=== PATIENT | female | born 1950 | race Caucasian/White ===

== ENCOUNTER 2019-07-13 22:21 | Inpatient (IN) | payer MEDICARE ==
[~2019-07-13] VITALS: Ht 149.9 cm; Wt 49.9 kg
[2019-07-13 22:48] LABS: BASOPHILS % (AUTO) 0.7 % (0.0-2.0); EOSINOPHILS % (AUTO) 4.4 % (0.0-6.0); HEMATOCRIT 37 % (33-45); HEMOGLOBIN 12.2 g/dL (11.5-14.8); LYMPHOCYTES # (AUTO) 2.4 /CMM (0.8-4.8); LYMPHOCYTES % (AUTO) 43.3 % (20.0-44.0); MEAN CORPUSCULAR HGB CONC 34 g/dl (31.0-36.0); MEAN CORPUSCULAR VOLUME 103 fL (82-100); MONOCYTES # (AUTO) 0.3 /CMM (0.1-1.30); MONOCYTES % (AUTO) 6.4 % (2.0-12.0); NEUTROPHILS # (AUTO) 2.5 /CMM (1.8-8.9); NEUTROPHILS % (AUTO) 45.2 % (43.0-81.0); PLATELET COUNT (AUTO) 72 /CMM (150-450); RED BLOOD CELL COUNT(AUTO) 3.54 MIL/uL (4.0-5.2); WHITE BLOOD COUNT (AUTO) 5.4 K/uL (4.3-11.0)
[2019-07-13 23:11] LABS: APPEARANCE,URINE Turbid (CLEAR); BILIRUBIN,URINE Negative (NEGATIVE); BLOOD, URINE Small Ery/uL (NEGATIVE); COLOR,URINE Yellow (YELLOW); KETONES,URINE Trace (NEGATIVE); LEUKOCYTE ESTERASE ,URINE Moderate (NEGATIVE); NITRITE, URINE Negative (NEGATIVE); PH,URINE 5.5 (5.0-8.0); PROTEIN,URINE 30 mg/dl (NEGATIVE); UGLUCOSE Negative (NEGATIVE); UROBILINOGEN,URINE 0.2 EU/dL (0.2)
[2019-07-13 23:16] LABS: EOSINOPHILS % (MANUAL) 2 % (0-4); LYMPHOCYTES % (MANUAL) 31 % (16-48); MONOCYTES % (MANUAL) 4 % (0-11.0); NEUTROPHILS % (MANUAL) 63 (42-76)
[2019-07-13 23:23] LABS: BACTERIA,URINE Moderate /HPF (None Seen); SQUAMOUS EPITHELIAL CELL,UR Moderate /HPF (None Seen)
[2019-07-13 23:40] LABS: CALCIUM, SERUM 8.7 mg/dL (8.5-10.1); CARBON DIOXIDE 29 mmol/L (21-32); CHLORIDE 104 mmol/L (98-107); CREATININE 1.1 mg/dL (0.6-1.3); GLUCOSE 67 mg/dL (74-106); POTASSIUM 3.9 mmol/L (3.5-5.1); SODIUM SERUM 141 mmol/L (136-145); UREA NITROGEN, BLOOD 28 mg/dL (7-18)
[2019-07-13 23:46] LABS: ALANINE AMINOTRANSFERASE 12 U/L (12-78); ALBUMIN 3.5 g/dL (3.4-5.0); ALKALINE PHOSPHATASE 56 U/L (46-116); ASPARTATE AMINOTRANSFERASE 13 U/L (15-37); BILIRUBIN,DIRECT 0.1 mg/dL (0.0-0.2); BILIRUBIN,TOTAL 0.3 mg/dL (0.2-1.0); TOTAL PROTEIN, SERUM 6.6 g/dL (6.4-8.2)
[2019-07-13 23:47] LABS: ACETAMINOPHEN 0 ug/ml (10-30); ALCOHOL, BLOOD < 3 mg/dL (0-0); SALICYLATE 1.5 mg/dL (2.8-20.0)
[2019-07-14] MEDS ORDERED: NITROFURANTOIN/NITROFURAN MAC 100 MG CAPSULE PO ONE
[2019-07-14] MEDS ORDERED: NITROFURANTOIN/NITROFURAN MAC 100 MG CAPSULE ONE (00:02)
[2019-07-14] MEDS ORDERED: TRAM50TA2 PO (00:49)
[2019-07-14] MEDS ORDERED: ARIP15TA3 PO (00:49)
[2019-07-14] MEDS ORDERED: BENZ2TAB7 PO (00:49)
[2019-07-14] MEDS ORDERED: MELA5TAB PO (00:49)
[2019-07-14] MEDS ORDERED: ESCI10TA PO (00:49)
[2019-07-14] MEDS ORDERED: CLON0.5T PO (00:49)
[2019-07-14] MEDS ORDERED: DIVA-78 PO (00:49)
[2019-07-14] MEDS ORDERED: DOCU-141 PO (00:49)
[2019-07-14] MEDS ORDERED: ATOR10TA PO (00:49)
[2019-07-14] MEDS ORDERED: CALC-770 PO (00:49)
[2019-07-14] MEDS ORDERED: AMLO10TA7 PO (00:49)
[2019-07-14] MEDS ORDERED: LITH300C4 PO (00:49)
[2019-07-14] MEDS ORDERED: GABA-534 PO (00:49)
[2019-07-14] MEDS ORDERED: OXYB5TAB11 PO (00:49)
[2019-07-14] MEDS ORDERED: TEMAZEPAM 7.5 MG CAPSULE PO PRN (02:00)
[2019-07-14] MEDS ORDERED: ACETAMINOPHEN 325 MG TABLET PO PRN (02:00)
[2019-07-14] MEDS ORDERED: MAGNESIUM HYDROXIDE 30 ML UDC PO PRN (02:00)
[2019-07-14] MEDS ORDERED: MAG HYDROX/AL HYDROX/SIMETH 30 ML UDC PO PRN (02:00)
[2019-07-14 02:30] VITALS: BP 139/71
[2019-07-14] MEDS ORDERED: BLOOD SUGAR DIAGNOSTIC 1 EACH STRIP IN ONE (02:30)
[2019-07-14 08:00] VITALS: BP 129/80
[2019-07-14] MEDS: NICOTINE PATCH (14MG) 14 MG PATCH.TD24 TD SCH (08:31)
[2019-07-14] MEDS: ESCITALOPRAM OXALATE (10 MG) 10 MG TABLET PO SCH (10:06)
[2019-07-14] MEDS: LITHIUM CARBONATE 150 MG CAPSULE PO SCH ×2 (10:06→21:09)
[2019-07-14] MEDS: DIVALPROEX SODIUM 500 MG TABLET.DR PO SCH ×3 (10:06→21:09)
[2019-07-14 16:00] VITALS: BP 112/62
[2019-07-14 20:07] VITALS: BP 117/89
[2019-07-14] MEDS: ARIPIPRAZOLE 5 MG TABLET PO SCH (21:09)
[2019-07-15 06:50] LABS: BASOPHILS % (AUTO) 0.6 % (0.0-2.0); EOSINOPHILS % (AUTO) 8.1 % (0.0-6.0); HEMATOCRIT 43 % (33-45); HEMOGLOBIN 14.1 g/dL (11.5-14.8); LYMPHOCYTES # (AUTO) 0.9 /CMM (0.8-4.8); MEAN CORPUSCULAR HGB CONC 33 g/dl (31.0-36.0); MEAN CORPUSCULAR VOLUME 103 fL (82-100); MONOCYTES # (AUTO) 0.3 /CMM (0.1-1.30); MONOCYTES % (AUTO) 4.8 % (2.0-12.0); NEUTROPHILS # (AUTO) 3.9 /CMM (1.8-8.9); NEUTROPHILS % (AUTO) 69.5 % (43.0-81.0); PLATELET COUNT (AUTO) 71 /CMM (150-450); RED BLOOD CELL COUNT(AUTO) 4.13 MIL/uL (4.0-5.2); WHITE BLOOD COUNT (AUTO) 5.5 K/uL (4.3-11.0)
[2019-07-15 07:14] LABS: CALCIUM, SERUM 9.3 mg/dL (8.5-10.1)
[2019-07-15 07:24] LABS: EOSINOPHILS % (MANUAL) 7 % (0-4); LYMPHOCYTES % (MANUAL) 17 % (16-48); MONOCYTES % (MANUAL) 2 % (0-11.0); NEUTROPHILS % (MANUAL) 74 (42-76)
[2019-07-15 08:00] VITALS: BP 100/65
[2019-07-15] MEDS: DOCUSATE SODIUM 100 MG CAPSULE PO SCH ×2 (08:50→17:03)
[2019-07-15] MEDS: LITHIUM CARBONATE 150 MG CAPSULE PO SCH ×2 (08:51→21:05)
[2019-07-15] MEDS: GABAPENTIN 300 MG CAPSULE PO SCH (08:51)
[2019-07-15] MEDS: ESCITALOPRAM OXALATE (10 MG) 10 MG TABLET PO SCH (08:51)
[2019-07-15] MEDS: AMLODIPINE BESYLATE 10 MG TABLET PO SCH (08:51)
[2019-07-15] MEDS: ATORVASTATIN 10 MG TABLET PO SCH (08:51)
[2019-07-15] MEDS: TRAMADOL HCL 50 MG TABLET PO SCH ×2 (08:52→17:04)
[2019-07-15] MEDS: NICOTINE PATCH (14MG) 14 MG PATCH.TD24 TD SCH (08:53)
[2019-07-15] MEDS: DIVALPROEX SODIUM 500 MG TABLET.DR PO SCH ×3 (09:00→21:05)
[2019-07-15] MEDS ORDERED: Medication Not On Formulary EA (Melatonin 5 MG) PO SCH (09:00)
[2019-07-15 16:00] VITALS: BP 99/64
[2019-07-15 20:00] VITALS: BP 99/61
[2019-07-15 20:12] VITALS: BP 99/61
[2019-07-15] MEDS: ARIPIPRAZOLE 5 MG TABLET PO SCH (21:05)
[2019-07-16 08:00] VITALS: BP 109/51
[2019-07-16] MEDS: NICOTINE PATCH (14MG) 14 MG PATCH.TD24 TD SCH (08:52)
[2019-07-16] MEDS: GABAPENTIN 300 MG CAPSULE PO SCH (08:52)
[2019-07-16] MEDS: ATORVASTATIN 10 MG TABLET PO SCH (08:53)
[2019-07-16] MEDS: DIVALPROEX SODIUM 500 MG TABLET.DR PO SCH ×3 (08:53→20:38)
[2019-07-16] MEDS: LITHIUM CARBONATE 150 MG CAPSULE PO SCH ×2 (08:53→20:38)
[2019-07-16] MEDS: DOCUSATE SODIUM 100 MG CAPSULE PO SCH ×2 (08:53→17:02)
[2019-07-16] MEDS: AMLODIPINE BESYLATE 10 MG TABLET PO SCH (08:54)
[2019-07-16] MEDS: ESCITALOPRAM OXALATE (10 MG) 10 MG TABLET PO SCH (08:54)
[2019-07-16] MEDS: TRAMADOL HCL 50 MG TABLET PO SCH ×2 (09:04→17:02)
[2019-07-16 16:13] VITALS: BP 100/61
[2019-07-16 19:46] VITALS: BP 122/76
[2019-07-16] MEDS: ARIPIPRAZOLE 5 MG TABLET PO SCH (21:22)
[2019-07-17 08:00] VITALS: BP 122/63
[2019-07-17] MEDS: GABAPENTIN 300 MG CAPSULE PO SCH (08:54)
[2019-07-17] MEDS: LITHIUM CARBONATE 150 MG CAPSULE PO SCH ×2 (08:54→21:17)
[2019-07-17] MEDS: TRAMADOL HCL 50 MG TABLET PO SCH ×2 (08:54→16:22)
[2019-07-17] MEDS: DOCUSATE SODIUM 100 MG CAPSULE PO SCH ×2 (08:54→16:23)
[2019-07-17] MEDS: ESCITALOPRAM OXALATE (10 MG) 10 MG TABLET PO SCH (08:54)
[2019-07-17] MEDS: NICOTINE PATCH (14MG) 14 MG PATCH.TD24 TD SCH (08:55)
[2019-07-17] MEDS: AMLODIPINE BESYLATE 10 MG TABLET PO SCH (08:55)
[2019-07-17] MEDS: ATORVASTATIN 10 MG TABLET PO SCH (08:55)
[2019-07-17] MEDS: DIVALPROEX SODIUM 500 MG TABLET.DR PO SCH ×3 (08:55→21:17)
[2019-07-17 16:00] VITALS: BP 100/63
[2019-07-17 21:02] VITALS: BP 104/63
[2019-07-17] MEDS: ARIPIPRAZOLE 5 MG TABLET PO SCH (21:17)
[2019-07-18 08:00] VITALS: BP 112/64
[2019-07-18] MEDS: TRAMADOL HCL 50 MG TABLET PO SCH ×2 (08:49→16:44)
[2019-07-18] MEDS: DOCUSATE SODIUM 100 MG CAPSULE PO SCH ×2 (08:49→16:40)
[2019-07-18] MEDS: ATORVASTATIN 10 MG TABLET PO SCH (08:49)
[2019-07-18] MEDS: GABAPENTIN 300 MG CAPSULE PO SCH (08:49)
[2019-07-18] MEDS: ESCITALOPRAM OXALATE (10 MG) 10 MG TABLET PO SCH (08:50)
[2019-07-18] MEDS: DIVALPROEX SODIUM 500 MG TABLET.DR PO SCH ×3 (08:50→21:18)
[2019-07-18] MEDS: LITHIUM CARBONATE 150 MG CAPSULE PO SCH ×2 (08:50→21:18)
[2019-07-18] MEDS: AMLODIPINE BESYLATE 10 MG TABLET PO SCH (08:51)
[2019-07-18] MEDS: NICOTINE PATCH (14MG) 14 MG PATCH.TD24 TD SCH (08:52)
[2019-07-18 16:00] VITALS: BP 117/59
[2019-07-18 19:56] VITALS: BP 155/87
[2019-07-18] MEDS: ARIPIPRAZOLE 5 MG TABLET PO SCH (21:18)
[2019-07-19 08:00] VITALS: BP 150/91
[2019-07-19] MEDS: NICOTINE PATCH (14MG) 14 MG PATCH.TD24 TD SCH (08:39)
[2019-07-19] MEDS: GABAPENTIN 300 MG CAPSULE PO SCH (08:39)
[2019-07-19] MEDS: ATORVASTATIN 10 MG TABLET PO SCH (08:39)
[2019-07-19] MEDS: ESCITALOPRAM OXALATE (10 MG) 10 MG TABLET PO SCH (08:40)
[2019-07-19] MEDS: DOCUSATE SODIUM 100 MG CAPSULE PO SCH ×2 (08:40→16:43)
[2019-07-19] MEDS: DIVALPROEX SODIUM 500 MG TABLET.DR PO SCH ×3 (08:40→20:30)
[2019-07-19] MEDS: LITHIUM CARBONATE 150 MG CAPSULE PO SCH ×2 (08:40→20:30)
[2019-07-19] MEDS: AMLODIPINE BESYLATE 10 MG TABLET PO SCH (08:41)
[2019-07-19] MEDS: TRAMADOL HCL 50 MG TABLET PO SCH ×2 (08:41→16:43)
[2019-07-19 16:04] VITALS: BP 102/64
[2019-07-19 19:54] VITALS: BP 106/61
[2019-07-19] MEDS: ARIPIPRAZOLE 5 MG TABLET PO SCH (21:06)
[2019-07-20 08:00] VITALS: BP 106/74
[2019-07-20] MEDS: ESCITALOPRAM OXALATE (10 MG) 10 MG TABLET PO SCH (08:53)
[2019-07-20] MEDS: DIVALPROEX SODIUM 500 MG TABLET.DR PO SCH ×3 (08:53→21:43)
[2019-07-20] MEDS: GABAPENTIN 300 MG CAPSULE PO SCH (08:53)
[2019-07-20] MEDS: LITHIUM CARBONATE 150 MG CAPSULE PO SCH ×2 (08:55→21:26)
[2019-07-20] MEDS: DOCUSATE SODIUM 100 MG CAPSULE PO SCH ×2 (08:55→17:00)
[2019-07-20] MEDS: ATORVASTATIN 10 MG TABLET PO SCH (08:55)
[2019-07-20] MEDS: TRAMADOL HCL 50 MG TABLET PO SCH ×2 (08:55→17:01)
[2019-07-20] MEDS: NICOTINE PATCH (14MG) 14 MG PATCH.TD24 TD SCH (08:57)
[2019-07-20] MEDS: AMLODIPINE BESYLATE 10 MG TABLET PO SCH (09:00)
[2019-07-20 16:00] VITALS: BP 100/63
[2019-07-20] MEDS: LORAZEPAM 0.5 MG TABLET PO PRN ×2 (17:20→22:09)
[2019-07-20 20:07] VITALS: BP 106/56
[2019-07-20] MEDS: ARIPIPRAZOLE 5 MG TABLET PO SCH (21:26)
[2019-07-21 08:00] VITALS: BP 127/59
[2019-07-21] MEDS: AMLODIPINE BESYLATE 10 MG TABLET PO SCH (09:00)
[2019-07-21] MEDS: NICOTINE PATCH (14MG) 14 MG PATCH.TD24 TD SCH (09:27)
[2019-07-21] MEDS: ESCITALOPRAM OXALATE (10 MG) 10 MG TABLET PO SCH (09:28)
[2019-07-21] MEDS: LITHIUM CARBONATE 150 MG CAPSULE PO SCH ×2 (09:28→20:55)
[2019-07-21] MEDS: TRAMADOL HCL 50 MG TABLET PO SCH ×2 (09:29→16:23)
[2019-07-21] MEDS: GABAPENTIN 300 MG CAPSULE PO SCH (09:30)
[2019-07-21] MEDS: ATORVASTATIN 10 MG TABLET PO SCH (09:30)
[2019-07-21] MEDS: DOCUSATE SODIUM 100 MG CAPSULE PO SCH ×2 (09:30→16:22)
[2019-07-21] MEDS: DIVALPROEX SODIUM 500 MG TABLET.DR PO SCH ×3 (09:30→20:55)
[2019-07-21] MEDS: LORAZEPAM 0.5 MG TABLET PO PRN ×2 (11:41→18:09)
[2019-07-21 16:00] VITALS: BP 110/51
[2019-07-21 20:00] VITALS: BP 118/73
[2019-07-21 20:05] VITALS: BP 118/73
[2019-07-21] MEDS: ARIPIPRAZOLE 5 MG TABLET PO SCH (21:20)
[2019-07-22 08:00] VITALS: BP 112/52
[2019-07-22] MEDS: GABAPENTIN 300 MG CAPSULE PO SCH (08:23)
[2019-07-22] MEDS: DIVALPROEX SODIUM 500 MG TABLET.DR PO SCH ×3 (08:24→21:01)
[2019-07-22] MEDS: ESCITALOPRAM OXALATE (10 MG) 10 MG TABLET PO SCH (08:24)
[2019-07-22] MEDS: ATORVASTATIN 10 MG TABLET PO SCH (08:24)
[2019-07-22] MEDS: TRAMADOL HCL 50 MG TABLET PO SCH ×2 (08:25→16:39)
[2019-07-22] MEDS: LITHIUM CARBONATE 150 MG CAPSULE PO SCH ×2 (08:26→21:01)
[2019-07-22] MEDS: AMLODIPINE BESYLATE 10 MG TABLET PO SCH (08:26)
[2019-07-22] MEDS: DOCUSATE SODIUM 100 MG CAPSULE PO SCH ×2 (08:26→16:38)
[2019-07-22] MEDS: NICOTINE PATCH (14MG) 14 MG PATCH.TD24 TD SCH (08:27)
[2019-07-22] MEDS: LORAZEPAM 0.5 MG TABLET PO PRN ×2 (09:17→18:28)
[2019-07-22 16:00] VITALS: BP 113/81
[2019-07-22 20:44] VITALS: BP 138/66
[2019-07-22] MEDS: ARIPIPRAZOLE 5 MG TABLET PO SCH (21:01)
[2019-07-23 08:00] VITALS: BP 101/62
[2019-07-23] MEDS: NICOTINE PATCH (14MG) 14 MG PATCH.TD24 TD SCH (08:13)
[2019-07-23] MEDS: ESCITALOPRAM OXALATE (10 MG) 10 MG TABLET PO SCH (08:14)
[2019-07-23] MEDS: ATORVASTATIN 10 MG TABLET PO SCH (08:14)
[2019-07-23] MEDS: DIVALPROEX SODIUM 500 MG TABLET.DR PO SCH ×3 (08:14→21:02)
[2019-07-23] MEDS: DOCUSATE SODIUM 100 MG CAPSULE PO SCH ×2 (08:14→17:15)
[2019-07-23] MEDS: GABAPENTIN 300 MG CAPSULE PO SCH (08:14)
[2019-07-23] MEDS: LITHIUM CARBONATE 150 MG CAPSULE PO SCH ×2 (08:15→21:02)
[2019-07-23] MEDS: AMLODIPINE BESYLATE 10 MG TABLET PO SCH (08:15)
[2019-07-23] MEDS: TRAMADOL HCL 50 MG TABLET PO SCH ×2 (08:15→17:15)
[2019-07-23] MEDS: ENSURE ENLIVE 237 ML LIQUID (VANILLA) PO SCH (08:16)
[2019-07-23] MEDS: LORAZEPAM 0.5 MG TABLET PO PRN (10:47)
[2019-07-23 16:05] VITALS: BP 100/53
[2019-07-23 20:00] VITALS: BP 102/57
[2019-07-23 20:11] VITALS: BP 102/57
[2019-07-23] MEDS: ARIPIPRAZOLE 5 MG TABLET PO SCH (21:02)
[2019-07-24 08:00] VITALS: BP 116/53
[2019-07-24] MEDS: LITHIUM CARBONATE 150 MG CAPSULE PO SCH ×2 (08:27→21:20)
[2019-07-24] MEDS: DOCUSATE SODIUM 100 MG CAPSULE PO SCH ×2 (08:28→16:16)
[2019-07-24] MEDS: TRAMADOL HCL 50 MG TABLET PO SCH ×2 (08:28→16:17)
[2019-07-24] MEDS: ESCITALOPRAM OXALATE (10 MG) 10 MG TABLET PO SCH (08:28)
[2019-07-24] MEDS: GABAPENTIN 300 MG CAPSULE PO SCH (08:28)
[2019-07-24] MEDS: DIVALPROEX SODIUM 500 MG TABLET.DR PO SCH ×3 (08:29→21:20)
[2019-07-24] MEDS: ATORVASTATIN 10 MG TABLET PO SCH (08:29)
[2019-07-24] MEDS: NICOTINE PATCH (14MG) 14 MG PATCH.TD24 TD SCH (08:29)
[2019-07-24] MEDS: AMLODIPINE BESYLATE 10 MG TABLET PO SCH (08:29)
[2019-07-24] MEDS: ENSURE ENLIVE 237 ML LIQUID (VANILLA) PO SCH (08:30)
[2019-07-24] MEDS: LORAZEPAM 0.5 MG TABLET PO PRN ×2 (10:57→19:42)
[2019-07-24 16:00] VITALS: BP 100/64
[2019-07-24 20:00] VITALS: BP 139/82
[2019-07-24 20:01] VITALS: BP 130/82
[2019-07-24] MEDS: ARIPIPRAZOLE 5 MG TABLET PO SCH (21:20)
[2019-07-25 08:00] VITALS: BP 97/54
[2019-07-25 08:25] VITALS: BP 97/54
[2019-07-25] MEDS: GABAPENTIN 300 MG CAPSULE PO SCH (08:25)
[2019-07-25] MEDS: DIVALPROEX SODIUM 500 MG TABLET.DR PO SCH (08:25)
[2019-07-25] MEDS: ESCITALOPRAM OXALATE (10 MG) 10 MG TABLET PO SCH (08:25)
[2019-07-25] MEDS: TRAMADOL HCL 50 MG TABLET PO SCH (08:25)
[2019-07-25] MEDS: NICOTINE PATCH (14MG) 14 MG PATCH.TD24 TD SCH (08:25)
[2019-07-25] MEDS: ATORVASTATIN 10 MG TABLET PO SCH (08:25)
[2019-07-25] MEDS: AMLODIPINE BESYLATE 10 MG TABLET PO SCH (08:25)
[2019-07-25] MEDS: DOCUSATE SODIUM 100 MG CAPSULE PO SCH (08:25)
[2019-07-25] MEDS: LITHIUM CARBONATE 150 MG CAPSULE PO SCH (08:25)
[2019-07-25] MEDS: ENSURE ENLIVE 237 ML LIQUID (VANILLA) PO SCH (08:27)
== END 2019-07-25 13:40 | DRG 885 ==
LOC: ER 22:25 → EDSEX 22:25 → GPS 07-14 01:12
PROVIDERS: ADMIT Psychiatry & Neurology Psychiatry; ATTEND Internal Medicine
DX: F25.9 Schizoaffective disorder, unspecified (principal); N39.0 Urinary tract infection, site not specified; F03.91 Unspecified dementia, unspecified severity, with behavioral disturbance; F29 Unspecified psychosis not due to a substance or known physiological condition; F41.9 Anxiety disorder, unspecified; E78.5 Hyperlipidemia, unspecified; I10 Essential (primary) hypertension; J44.9 Chronic obstructive pulmonary disease, unspecified; M19.90 Unspecified osteoarthritis, unspecified site; Z73.6 Limitation of activities due to disability
CPT/HCPCS: 36415; 80048-TC; 80061-TC; 80076-TC; 80164-TC; 80305; 81000-TC; 82962-TC; 85025-TC; 87081-TC; 87086-TC; 92526; 92611-TC; 97116-TC; 97530-TC; G0480